=== PATIENT | male | born 1945 | race Caucasian/White ===

== ENCOUNTER 2024-04-08 08:00 | Emergency (ER) | payer OTHER ==
[~2024-04-08] VITALS: Ht 160 cm; Wt 72.1 kg
[2024-04-08 08:09] VITALS: BP 133/77; PULSE 84; RESP 20; TEMP 97.5; O2SAT 97
[2024-04-08] MEDS: CYCLOBENZAPRINE 10 MG TAB PO ONE (08:37)
[2024-04-08] MEDS: KETOROLAC 30 MG/ML VIAL IM ONE (08:38)
[2024-04-08] MEDS: LIDOCAINE 5% 1 EA PATCH TP ONE (08:38)
== END 2024-04-08 09:17 | disposition home or self-care (01) ==
LOC: MED 08:00
DX: M54.2 Cervicalgia (principal); R20.0 Anesthesia of skin
CPT/HCPCS: 96372; 99283; J1885